=== PATIENT | male | born 1985 | race Caucasian/White ===

== ENCOUNTER → 2016-09-27 | Emergency (ER) | payer OTHER ==
[~2016-09-27] MED LIST: AMOX TR/POT CLAV 875MG/125MG TABLETS (FP) ONE; AMOX TR/POT CLAV 875MG/125MG TABLETS (FP) PO ONE; OXYCODONE/APAP 5/325MG COMBO TABLET ONE; POTASSIUM CHLORIDE TABS 20 MEQ TABLET.ER (FP) PO ONE
[2016-09-27 23:47] VITALS: BP 123/92; PULSE 134; TEMP 99; BMI 35.7
--- NOTE | 2016-09-28 00:22 | PDOC ---
History of Present Illness - General Chief Complaint: Injury Stated Complaint: LACERATION Time Seen by Provider: 09/28/16 00:01 History Source: Patient, Friend Exam Limitations: No Limitations - History of Present Illness Initial Comments: 09/28/16 00:19 30yo Male patient presents to ED with c/o head injury, laceration. Patients' friend states they were at a baby shower where they were drinking, and while outside patient tripped and fell into a flower pot head first. Denies LOC, CP, Abd pain, diff breathing, n/v/d, confusion, disorientation or any other complaints at this time. Patient reports Tetanus up to date. Occurred: reports: just prior to arrival Severity: reports: moderate Pain Location: reports: face Method of Injury: Yes: fall Modifying Factors: worse with: None, cold therapy, immobilization, pain medication, rest, other Loss of Consciousness: no loss of consciousness Associated Symptoms (Fall): denies symptoms Past History - Travel Traveled outside of the country in the last 30 days: No Close contact w/someone who was outside of country & ill: No - Past Medical History Allergies/Adverse Reactions: Allergies Allergy/AdvReac Type Severity Reaction Status Date / Time No Known Allergies Allergy Verified 09/27/16 23:47 Home Medications: Ambulatory Orders Amoxicillin/Potassium Clav [Augmentin 875-125 Tablet] 1 each PO Q12H #20 tablet 09/28/16 Thyroid Disease: No - Immunization History Td Vaccination: Yes Immunization Up to Date: Yes - Psycho/Social/Smoking Cessation Hx Anxiety: No Suicidal Ideation: No Smoking Status: No Smoking History: Current every day smoker Years of Tobacco Use: 0 Number of Cigarettes Smoked Daily: 20 Cigars Per Day: 0 Information on smoking cessation initiated: No 'Breaking Loose' booklet given: 06/12/15 Hx Alcohol Use: No Drug/Substance Use Hx: No Substance Use Type: Alcohol Hx Substance Use Treatment: No Trauma Specific PMHX - Complaint Specific PMHX Arthritis: No Back Injury: No Neck Injury: No Hx Sacro Iliac Joint Dysfunction: No Review of Systems - Review of Systems Able to Perform ROS?: Yes (Friend) Is the patient limited Azerbaijani proficient: No Constitutional: No: Chills, Fever HEENTM: No: Eye Pain, Blurred Vision, Double Vision Respiratory: No: Cough, Shortness of Breath, Stridor, Wheezing Cardiac (ROS): No: Chest Pain, Edema, Lightheadedness, Palpitations, Syncope, Chest Tightness ABD/GI: No: Diarrhea, Nausea, Vomiting, Other (Abd Pain) Musculoskeletal: No: Back Pain, Neck Pain Integumentary: Yes: Other (Multiple lacerations.). No: Bruising, Rash Neurological: Yes: Other (Head injury). No: Headache All Other Systems: Reviewed and Negative *Physical Exam - Vital Signs Last Vital Signs Temp Pulse Resp BP Pulse Ox 99 F 134 H 20 123/92 09/27/16 23:41 09/27/16 23:41 09/27/16 23:41 09/27/16 23:41 - Physical Exam General Appearance: Yes: Nourished, Appropriately Dressed, Mild Distress, Alcohol on Breath, Intoxicated. No: Apparent Distress, Moderate Distress, Severe Distress HEENT: positive: EOMI, ZENA, Normal ENT Inspection, Normal Voice, Symmetrical, TMs Normal, Pharynx Normal. negative: Pharyngeal Erythema, Tonsillar Exudate, Tonsillar Erythema, Nasal Congestion, Rhinorrhea Neck: positive: Trachea midline, Normal Thyroid, Supple. negative: Decreased range of motion, Stridor, Lymphadenopathy (R), Lymphadenopathy (L) Respiratory/Chest: positive: Lungs Clear, Normal Breath Sounds. negative: Chest Tender, Respiratory Distress, Accessory Muscle Use, Labored Respiration, Rapid RR Cardiovascular: positive: Regular Rhythm, Regular Rate. negative: Edema, JVD, Murmur Gastrointestinal/Abdominal: positive: Normal Bowel Sounds, Soft. negative: Distended, Guarding, Rebound, Tenderness Lymphatic: negative: Adenopathy Musculoskeletal: positive: Normal Inspection. negative: CVA Tenderness Extremity: positive: Normal Capillary Refill, Normal Inspection, Normal Range of Motion Integumentary: positive: Normal Color, Dry, Warm, Other (5cm laceration to right eye brow, 3cm laceration below right lower eyelid, <0.5cm laceration to bridge of nose.) Procedures - Laceration/Wound Repair Right Upper Eye Wound Length: 5.0 to 7.5 cm Wound Explored: clean Wound's Depth, Shape: into muscle, linear Irrigated w/ Saline: Yes Betadine Prep: Yes Anesthesia: 1% Lidocaine Amount of Anesthetic (ccs): 8 Wound Debrided: None Wound Repaired With: Sutures Suture Size/Type: 6:0, proline Number of Sutures: 12 Layer Closure: No Sterile Dressing Applied: No Splint Applied: No Sling Applied: No Progress: 09/28/16 02:32 Patient tolerated procedure well. Patient with 2 lacerations, one to right eyebrow sutured with 6-0 proline and one to his right lower eyelid which patient preferred glue application. Risk and Benefits discussed with patient. Patient demonstrated understanding by nodding head and saying yes. ED Treatment Course - RADIOLOGY Radiology Studies Ordered: Category Date Time Status CERVICAL SPINE CT W/O CONTR [CT] Stat CT Scan 09/28/16 00:[address] W/O CONTRAST [CT] Stat CT Scan 09/28/16 00:[address] WITHOUT CONTRAST [CT] Stat CT Scan 09/28/16 00:16 Ordered Progress Note - Progress Note Progress Note: Name: Christo Cordero : 1985 Sex: M Study Date & Time: 09/28/201601:35:00 Description: CERVICAL SPINE CT W/O CONTR Coding Spec: (isaac) Begin of Report Content Referring Physician: Chioma Romero Patient Name: Gil Villafuerte THIS IS A PRELIMINARYREPORT FROM IMAGING RADIATION / CHEMISTRY TECHNICIAN EXAM: CT cervical spine without contrast IMAGES: 345 INDICATION: Status post fall with head trauma DATE OF SERVICE: 2016-09-28 01:35:00.0 COMPARISON: none FINDINGS: There is no fracture, subluxation, prevertebral soft tissue swelling or significant degenerative changes. The lung apices are clear. IMPRESSION: No fracture. THIS DOCUMENT HAS BEEN ELECTRONICALLY SIGNED Salvador Ortega MD 09/28/2016 02:22 BARBER Enamorado Please call Imaging Cardiology Specialist [phone] with questions. End of Report Content Report Viewer powered by: ALANNAH Name: Christo Cordero : 1985 Sex: M Study Date & Time: 09/28/201601:39:57 Description: HEAD CT WITHOUT CONTRAST Coding Spec: ([email or web address]) Begin of Report Content Referring Physician: Chioma Romero Patient Name: Gil Villafuerte THIS IS A PRELIMINARYREPORT FROM IMAGING RADIATION / CHEMISTRY TECHNICIAN EXAM: CT brain without contrast IMAGES: 82 INDICATION: Status post fall with head injury DATE OF SERVICE: 2016-09-28 01:39:57.0 COMPARISON: none FINDINGS: The ventricular system is midline and nondilated. The sulcal pattern is normal for the patient's age. There is no bleed, mass, extra-axial fluid collection or mass effect. Right supraorbital scalp laceration is noted. No skull fracture or skull lesion is identified. Prominent mucosal thickening in the bilateral maxillary sinuses with air-fluid levels likely represents sinusitis. The visualized mastoid air cells are clear. IMPRESSION: Scalp laceration without fracture or intracranial pathology. Bilateral maxillary sinusitis. THIS DOCUMENT HAS BEEN ELECTRONICALLY SIGNED Salvador Ortega MD 09/28/2016 02:14 EST MVannessa Please call Imaging Cardiology Specialist [phone] with questions. End of Report Content Report Viewer powered by: [employer] [facility] Name: Christo Cordero : 1985 Sex: M Study Date & Time: 09/28/201601:41:19 Description: FACIAL BONES CT W/O CONTRAST Coding Spec: ([email or web address]) Begin of Report Content Referring Physician: Chioma Romero Patient Name: Gil Villafuerte THIS IS A PRELIMINARYREPORT FROM IMAGING RADIATION / CHEMISTRY TECHNICIAN EXAM: CT facial bones without contrast IMAGES: 437 INDICATION: Status post fall with head injury DATE OF SERVICE: 2016-09-28 01:41:19.0 COMPARISON: none FINDINGS: Right supraorbital laceration is noted. The intraorbital contents are intact. Prominent mucosal thickening and air-fluid levels in the bilateral maxillary sinuses likely represents sinusitis. The other paranasal sinuses and bilateral mastoid air cells are well aerated. There is no fracture. IMPRESSION: No fracture. Bilateral maxillary sinusitis. THIS DOCUMENT HAS BEEN ELECTRONICALLY SIGNED Salvador Ortega MD 09/28/2016 02:18 BARBER Enamorado Please call Imaging Cardiology Specialist [phone] with questions. End of Report Content *DC/Admit/Observation/Transfer Diagnosis at time of Disposition: Laceration Injury of head Qualifiers: Encounter type: initial encounter Qualified Code(s): S09.90XA - Unspecified injury of head, initial encounter Fall Qualifiers: Encounter type: initial encounter Qualified Code(s): W19.XXXA - Unspecified fall, initial encounter - Discharge Dispostion Disposition: HOME Condition at time of disposition: Improved Admit: No - Prescriptions Prescriptions: Amoxicillin/Potassium Clav [Augmentin 875-125 Tablet] 1 each PO Q12H #20 tablet - Patient Instructions Printed Discharge Instructions: DI for Suture Removal, DI for Closed Head Injury, DI for Laceration Repair With Dermabond Additional Instructions: FOLLOW UP WITH YOUR PRIMARY CARE PROVIDER OR RETURN TO THIS EMERGENCY DEPARTMENT IN 5 DAYS FOR SUTURE REMOVAL. TAKE MEDICATIONS PRESCRIBED. YOU MAY APPLY LIGHT FILM OF TRIPLE ANTIBIOTIC DAILY TO EYEBROW. MOTRIN OR TYLENOL NEEDED FOR PAIN. RETURN IF ANY CONCERNS FOR FURTHER EVALUATION. Print Language: IRANIAN - Post Discharge Activity Work/School Note: Back to Work
== END | disposition home or self-care (01) ==
LOC: JER 23:35
PROC: 0JQ10ZZ Repair Face Subcutaneous Tissue and Fascia, Open Approach (ICD-10-PCS; principal; 2016-09-27)
DX: S01.111A Laceration without foreign body of right eyelid and periocular area, initial encounter (principal); W01.198A Fall on same level from slipping, tripping and stumbling with subsequent striking against other object, initial encounter; Y93.89 Activity, other specified; Y92.89 Other specified places as the place of occurrence of the external cause
CPT/HCPCS: 13132; 70450-TC; 70486-TC; 72125-TC; 99281-25

== ENCOUNTER 2016-09-29 07:56 | Emergency (ER) | payer OTHER ==
[2016-09-29 08:03] VITALS: BP 149/89; PULSE 82; TEMP 98.2; BMI 36.3
--- NOTE | 2016-09-29 08:11 | PDOC ---
History of Present Illness - General Chief Complaint: Pain Stated Complaint: NUMBNESS Time Seen by Provider: 09/29/16 08:11 History Source: Patient Exam Limitations: No Limitations - History of Present Illness Initial Comments: 09/29/16 09:01 CHIEF COMPLAINT: B/L pain and numbness in the 3rd/4th digit PCP: Dr. Duncan Astorga HISTORY OF PRESENT ILLNESS: 30 year old male presented to the ED with the chief complaints of B/L pain and numbness in the 3rd/4th digit. A/c to the patient, he had a head injury 2 days ago after tripping on a flower pot during a baby shower alliance party where they were drinking alcohol. Came to [facility] ED s/p fall, Imaging for CT head, neck and Facial bones were performed. Suture was applied over the right eye brow and glue over the right lower eye lids. Patient reports he had alternating numbness, tingling and pain over the B/L middle and ring finger since the accident which is getting worse, took one motrin which didn't help. Pain is severe and very sensitive to light tough and even water. Denies headache, dizziness, loc, chest pain, sob, cough, palpitation, abdominal pain, nausea or vomiting. Bowel/Bladder habit normal. Sleep/Appetite Normal. Recent Travel: None PAST MEDICAL HISTORY: None PAST SURGICAL HISTORY: Abdominal Hernia repair Social History: Smoking: Current smoker, decreased 1 pack/day to 12 cigs/day Alcohol: Occasional Drugs: Denies Family History: Allergies: NKDA Past History - Past Medical History Allergies/Adverse Reactions: Allergies Allergy/AdvReac Type Severity Reaction Status Date / Time No Known Allergies Allergy Verified 09/29/16 07:58 Home Medications: Ambulatory Orders Amoxicillin/Potassium Clav [Augmentin 875-125 Tablet] 1 each PO Q12H #20 tablet 09/28/16 Oxycodone HCl/Acetaminophen [Percocet 5-325 mg Tablet] 1 tab PO TID #5 tablet MDD 3 09/29/16 Thyroid Disease: No Other medical history: none - Surgical History Abdominal Surgery: Yes (abd hernia) - Immunization History Td Vaccination: Yes Immunization Up to Date: Yes - Psycho/Social/Smoking Cessation Hx Anxiety: No Suicidal Ideation: No Smoking Status: No Smoking History: Current every day smoker Years of Tobacco Use: 0 Have you smoked in the past 12 months: Yes Number of Cigarettes Smoked Daily: 10 Cigars Per Day: 0 Information on smoking cessation initiated: Yes 'Breaking Loose' booklet given: 09/29/16 Hx Alcohol Use: Yes (social) Drug/Substance Use Hx: No Substance Use Type: Alcohol Hx Substance Use Treatment: No Review of Systems - Review of Systems Able to Perform ROS?: Yes Comments:: 09/29/16 09:50 CONSTITUTIONAL: Absent: fever, chills, diaphoresis, generalized weakness, malaise, loss of appetite HEENT: Absent: rhinorrhea, nasal congestion, throat pain, throat swelling, difficulty swallowing, mouth swelling, ear pain, eye pain, visual Changes CARDIOVASCULAR: Absent: chest pain, syncope, palpitations, irregular heart rate, lightheadedness , peripheral edema RESPIRATORY: Absent: cough, shortness of breath, dyspnea with exertion, orthopnea, wheezing, stridor, hemoptysis GASTROINTESTINAL: Absent: abdominal pain, abdominal distension, nausea, vomiting, diarrhea, constipation, melena, hematochezia GENITOURINARY: Absent: dysuria, frequency, urgency, hesitancy, hematuria, flank pain, genital pain MUSCULOSKELETAL: Present: B/L pain and numbness in the third and fourth digits. Absent: myalgia, arthralgia, joint swelling SKIN: Absent: rash, itching, pallor HEMATOLOGIC/IMMUNOLOGIC: Absent: easy bleeding, easy bruising, lymphadenopathy, frequent infections ENDOCRINE: Absent: unexplained weight gain, unexplained weight loss, heat intolerance, cold intolerance NEUROLOGIC: Absent: headache, focal weakness or paresthesias, dizziness, unsteady gait, seizure, mental status changes, bladder or bowel incontinence PSYCHIATRIC: Absent: anxiety, depression, suicidal or homicidal ideation, hallucinations. Is the patient limited Yoruba proficient: No *Physical Exam - Vital Signs Last Vital Signs Temp Pulse Resp BP Pulse Ox 98.2 F 82 18 149/89 99 09/29/16 07:58 09/29/16 07:58 09/29/16 07:58 09/29/16 07:58 09/29/16 07:58 - Physical Exam Comments: 09/29/16 09:52 PE: GENERAL: Awake, alert, and fully oriented, in no acute distress HEAD: Signs of trauma EYES: Suture applied over the right eyebrow, area looks dry and clean, lower eyelid lacerated wound looks clean and dry, PERRLA, EOMI, sclera anicteric, conjunctiva clear ENT: Auricles normal inspection, hearing grossly normal, nares patent, oropharynx clear without exudates. Moist mucosa NECK: Normal ROM, supple, no lymphadenopathy, JVD, or masses LUNGS: Breath sounds equal, clear to auscultation bilaterally. No wheezes, and no crackles.. HEART: Regular rate and rhythm, normal S1 and S2, no murmurs, rubs or gallops ABDOMEN: Soft, nontender, normoactive bowel sounds. No guarding, no rebound. No masses EXTREMITIES: Normal range of motion, no edema. No clubbing or cyanosis. No cords, erythema, or tenderness MUSCULOSKELETAL: B/L upper extremity: Normal bulk, tone, power and reflex. Sensitive and tender to touch in 3rd and 4th digit. NEUROLOGICAL: Cranial nerves II through XII grossly intact. Normal speech, normal gait SKIN: Warm, Dry, normal turgor, no rashes or lesions noted. Medical Decision Making - Medical Decision Making 09/29/16 08:11 Patient seen and examined at bed side. Vitals noted, unremarkable. Patient looks comfortable. Physical exam: Positive findings include :B/L upper extremity : Normal bulk, tone, power and reflex. Sensitive and tender to touch in 3rd and 4th digit. Will order x-ray of B/L hands Percocet 1 Tab stat 09/29/2016 9:00 Patient reassessed. Pain remains the same. Waiting for x-ray official report. 09/29/2016 9:54 Patient reassessed. X-ray of both hands-No acute pathology Clinical Impression: Most likely B/L sprain of the hand muscles s/p fall Patient had a fall 2 days ago hitting his head, most likely he extended his hands and got injured X-ray of both hands no fracture Motrin/Percocet for pain If symptoms persists would suggest to perform an MRI of the neck to rule out any cervical pathology but seems less likely at this time Patient is hemodynamically stable and can be discharged. Illness, Investigation and Plan of care explained to the patient. He verbalized understanding. Case seen and discussed with Dr. Garcia. *DC/Admit/Observation/Transfer Diagnosis at time of Disposition: Sprain - Discharge Dispostion Disposition: HOME Condition at time of disposition: Guarded Admit: No - Prescriptions Prescriptions: Oxycodone HCl/Acetaminophen [Percocet 5-325 mg Tablet] 1 tab PO TID #5 tablet MDD 3 - Referrals Referrals: Duncan Astorga [Primary Care Provider] - - Patient Instructions Printed Discharge Instructions: Wrist Sprain Additional Instructions: Your x-ray of both the hands look normal, there are no fractures noted. Pain over the middle and ring finger is most likely due to sprain of the hand muscles secondary to fall. If symptoms persist or is getting worse, would recommend you to visit your primary doctor and get an MRI done. Please take Motrin or Percocet for pain. If symptoms persist or is worsening or you develop NEW symptoms, return to the ED immediately. Follow up with your primary doctor this week.
[2016-09-29] MEDS ORDERED: oxyCODONE HCL 5 MG TABLET PO ONE (08:41)
[2016-09-29] MEDS ORDERED: ACETAMINOPHEN 325 MG TABLET (FP) PO ONE (08:42)
--- NOTE | 2016-09-29 08:45 | PDOC ---
Attending Attestation - Resident Resident Name: Thania Jonesny - ED Attending Attestation I have performed the following: I have examined & evaluated the patient, The case was reviewed & discussed with the resident, I agree w/resident's findings & plan, Exceptions are as noted - HPI HPI: 09/29/16 08:41 healthy 30y/o M returns for evaluation of b/l 3rd and 4th digit/hand pain. Pt had mechanical trip/fall 2 nights ago, seen here yesterday morning and had normal CT head/cspine/facial imagine, lac repair, and discharged. Now c/o pain/numbness worse with movement. No arm involvement. - Physicial Exam PE: 09/29/16 08:42 VSS, well appearing seated alert in stretcher neuro intact reproducible ttp distal 4th>3rd metarpal on Left, distal 3rd metacarpal on Right no wrist involvement, nvi - Medical Decision Making 09/29/16 08:44 Patient seen and evaluated with the resident. I agree with the overall evaluation, assessment, and management with the following summary of visit: 30-year-old male returns for evaluation of bilateral hand pain status post fall a little over 24 hours ago, previous trauma workup was unremarkable but now with localized bilateral hand pain, likely musculoskeletal in nature, no evidence of neurological involvement. Neurovascularly intact. Consistent with sprain, rule out fracture. Bilateral hand x-ray Pain control Dispo accordingly
== END 2016-09-29 10:35 | disposition home or self-care (01) ==
LOC: JER 07:56
DX: S63.698A Other sprain of other finger, initial encounter (principal); W01.198A Fall on same level from slipping, tripping and stumbling with subsequent striking against other object, initial encounter; Y93.89 Activity, other specified; Y92.89 Other specified places as the place of occurrence of the external cause
CPT/HCPCS: 73130-TC-LT; 73130-TC-RT; 99282-25

== ENCOUNTER 2016-10-05 12:00 | Emergency (ER) | payer OTHER ==
[2016-10-05 12:12] VITALS: BP 153/83; PULSE 105; TEMP 97; BMI 35.7
--- NOTE | 2016-10-05 13:07 | PDOC ---
Suture Removal/Wound Check HPI - History of Present Illness Chief Complaint: Suture/Staple Removal(Here) Stated Complaint: STAPLE REMOVAL Time Seen by Provider: 10/05/16 12:55 History Source: Yes: Patient Exam Limitations: Yes: No Limitations Treated at: [facility] Date of Last ED visit: 09/27/16 - Previous ED Treatment Type of procedure performed on last visit: Yes: Laceration Repair Tetanus Immunization: Yes: Up to Date Past History - Past Medical History Allergies/Adverse Reactions: Allergies No Known Allergies Allergy (Verified 10/05/16 12:12) Home Medications: Ambulatory Orders NK [No Known Home Medication] 10/05/16 General: Yes: no pertinent history Surgical History: Yes: No Surgical History - Family History Significant Family History: Yes: no pertinent family hx - Immunization History Immunizations Up to Date: Yes Tetanus Status: Less than 5 years - Social History Smoking History: No Smoking Status: Former smoker Years of Tobacco Use: 0 Number of Ciarettes Per Day: 20 Cigars Per Day: 0 Alcohol Use: none Drug Use: none Patient Lives Alone: No Lives With: spouse/SO Suture Removal/Wound Check PE - Physical Exam Laceration/Wound Check Symptoms: reports: None Current Severity Level: None Maximum Severity Level: None Pain Localization: None Location of Laceration/Wound: right: Eye Pain Radiation: None *Review of Systems - Review of Systems Able to Perform ROS?: Yes Constitutional: No: Symptoms Reported HEENTM: No: Symptoms Reported Integumentary: No: Symptoms Reported Neurological: No: Symptoms reported Medical Decision Making - Medical Decision Making 10/05/16 13:40 Patient status post laceration repair to the right eyebrow and was placed on Augmentin upon discharge. Patient had 12 sutures removed without difficulty. Bacitracin applied to the affected area. Patient told to continue to applying bacitracin for the next 2 days twice a day and to complete antibiotics. *DC/Admit/Observation/Transfer Diagnosis at time of Disposition: Encounter for removal of sutures - Discharge Dispostion Disposition: HOME Condition at time of disposition: Good - Referrals Referrals: Duncan Astorga [Primary Care Provider] - - Patient Instructions Printed Discharge Instructions: DI for Suture Removal Additional Instructions: Please apply bacitracin to the affected areas twice a day for the next 2 days as discussed. He may also use Mederma which he may purchase [id number] which will alleviate the scar. Complete antibiotics
== END 2016-10-05 13:44 | disposition home or self-care (01) ==
LOC: JERFT 12:00
DX: Z48.02 Encounter for removal of sutures (principal)
CPT/HCPCS: 99281-25

== ENCOUNTER 2022-12-29 17:01 | Emergency (ER) | payer OTHER ==
[2022-12-29 17:15] VITALS: BP 153/94; PULSE 113; RESP 20; TEMP 99.3; BMI 36.4
[2022-12-29] MEDS ORDERED: LIDOCAINE 5% TOPICAL PATCH TP ONE (18:14)
[2022-12-29] MEDS ORDERED: KETOROLAC TROMETHAMINE 30 MG/1 ML VIAL IM ONE (18:14)
[2022-12-29] MEDS ORDERED: METHOCARBAMOL 500 MG TABLET PO ONE (18:16)
[2022-12-29] MEDS ORDERED: ACETAMINOPHEN 500 MG TABLET (FP) PO ONE (18:18)
[2022-12-29] MEDS ORDERED: ACETAMINOPHEN 500 MG TABLET (FP) ONE (18:27)
[2022-12-29] MEDS ORDERED: KETOROLAC TROMETHAMINE 30 MG/1 ML VIAL ONE (18:27)
[2022-12-29] MEDS ORDERED: LIDOCAINE 5% TOPICAL PATCH ONE (18:27)
[2022-12-30] MEDS ORDERED: LIDOCAINE PATCH REMOVAL MC SCH (06:00)
== END 2022-12-29 19:32 | disposition home or self-care (01) ==
LOC: JERFT 17:01
PROC: 3E0233Z Introduction of Anti-inflammatory into Muscle, Percutaneous Approach (ICD-10-PCS; principal; 2022-12-29)
DX: M25.551 Pain in right hip (principal)
CPT/HCPCS: 72170-TC-FY; 73502-TC-RT-FY; 99284-25